=== PATIENT | male | born 2000 | race Caucasian/White ===

== ENCOUNTER → 2019-12-22 09:24 | Outpatient (BNVA) | payer OTHER, SELFPAY | PROVIDERS: Family Provider Family Medicine; PCP Nurse Practitioner Family; Visit Provider Registered Nurse | DX: I10 Essential (primary) hypertension (principal); L03.031 Cellulitis of right toe | CPT/HCPCS: 80053; 80061; 81000; 85025 ==

== ENCOUNTER 2023-08-23 12:52 | Emergency (ER) | payer SELFPAY ==
[2023-08-23 12:59] VITALS: BP 142/73; PULSE 86; RESP 18; TEMP 36.8; O2SAT 98; BMI 30.5
--- NOTE | 2023-08-23 13:02 | W.ED.PSYCHS ---
HPI - Psych General: Chief Complaint: Psychiatric Symptoms Stated Complaint: SI Time Seen by Provider: 08/23/23 12:56 PFSH ED PFSH: Medical History Aortic stenosis Essential hypertension Subungual contusion of finger Tachycardia with heart rate 100-120 beats per minute Surgical History Hx of oral surgery Hx of tonsillectomy Social History Smoking and tobacco/nicotine status: never used tobacco/nicotine Course Vital Signs: Vital signs: Vital Signs Temperature 98.3 F 08/23/23 12:59 Pulse Rate 86 08/23/23 12:59 Respiratory Rate 18 08/23/23 12:59 Blood Pressure 142/73 08/23/23 12:59 Pulse Oximetry 98 08/23/23 12:59 Oxygen Delivery Me thod Room Air 08/23/23 12:59 Discharge Plan Discharge Condition: Stable Prescriptions: No Action amoxicillin-pot clavulanate 875-125 mg tablet 1 tab PO BID 10 Days Qty: 20 0RF Referrals: Andrés Waters MD [Primary Care Provider] - Dm Galindo MD [Family Provider] - Coding Level of Care Code ED 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
--- NOTE | 2023-08-23 13:10 | W.ED.PSYCHS ---
HPI - Psych General: Chief Complaint: Psychiatric Symptoms Stated Complaint: SI Time Seen by Provider: 08/23/23 12:56 Source: patient Mode of arrival: ambulatory Limitations: no limitations History of Present Illness: 22-year-old male states that he has had history of depression he states he started taking Paxil a month ago he states over the last week he has had worsening depression with suicidal thoughts he has no specific plans. He does not see a psychiatrist he states that he gets his Paxil from his PCP states he is feeling like he needs to get help though as his thoughts have worsened he has no specific plans he voluntarily wants to get help. Associated symptoms: Reports depression Review of Systems Const: Denies: fever(s), chills, body aches or change in appetite ENMT: Denies: throat pain or dental pain Card: Denies: chest pain Resp: Denies: dyspnea GI: Denies: abdominal pain, nausea, vomiting or diarrhea Musc: Denies: neck pain or back pain Skin/Breast: Denies: rash Neuro: Denies: headache(s) Psych: Reports: depression [facility] ED PFSH: Medical History Aortic stenosis Essential hypertension Subungual contusion of finger Tachycardia with heart rate 100-120 beats per minute Surgical History Hx of oral surgery Hx of tonsillectomy Social History Smoking and tobacco/nicotine status: never used tobacco/nicotine Physical Exam Const: COMMON NORMALS: no acute distress, patient oriented x3 and healthy appearing HENMT: COMMON NORMALS: normocephalic and atraumatic HEAD & SCALP: normocephalic and atraumatic Neck/C-Spine: COMMON NORMALS: full ROM and supple Chest: COMMONS NORMALS: normal inspection of the chest Resp: COMMON NORMALS: normal respiratory effort Cardio: COMMON NORMALS: regular rate, regular rhythm and No murmurs present (Cardio) RATE: regular rate RHYTHM: regular rhythm GI: INSPECTION: Yes normal to inspection Extremity: COMMON NORMALS: normal to inspection and full ROM Neuro: COMMON NORMALS: patient oriented x3, moves all extremities and no focal motor deficits Psych: COMMON NORMALS: mental status grossly normal, Normal thought process present and cooperative MOOD & AFFECT: Yes euthymic mood THOUGHT PROCESS: Normal thought process present Skin: COMMON NORMALS: no rashes or lesions noted and no wounds GENERAL SKIN EXAM: no rashes or lesions noted Course Vital Signs: Vital signs: Vital Signs Temperature 98.3 F 08/23/23 12:59 Pulse Rate 86 08/23/23 12:59 Respiratory Rate 18 08/23/23 12:59 Blood Pressure 142/73 08/23/23 12:59 Pulse Oximetry 98 08/23/23 12:59 Oxygen Delivery Me thod Room Air 08/23/23 12:59 MDM - Psych Medical Decision Making Patient presents with depression for someone to be voluntarily admitted in the study. Like to go home I did have patient evaluated by psychiatrist here who feels he is not a threat to himself and does not need to be 96. We will switch his Paxil to Prozac he is to follow-up with the crisis center on Wednesday he is to return if worsening he understands agrees to plan. Medical Records I reviewed the patient's medical records. Lab Data I reviewed the patient's lab results. 08/23/23 13:05 08/23/23 13:05 Laboratory Results WBC 6.88 10^3/uL (3.29-11.43) 08/23/23 13:05 RBC 4.86 10^6/uL (3.85-5.65) 08/23/23 13:05 Hgb 14.40 g/dL (11.27-16.99) 08/23/23 13:05 Hct 42.0 % (37-53) 08/23/23 13:05 MCV 86.4 fl (82-101) 08/23/23 13:05 MCH 29.6 pg (27-33) 08/23/23 13:05 MCHC 34.3 g/dL (30-55) 08/23/23 13:05 RDW 13.8 % (12.1-15.1) 08/23/23 13:05 Plt Count 284 10^3/cmm (157-399) 08/23/23 13:05 MPV 9.4 fL (7.4-10.4) 08/23/23 13:05 Neut % (Auto) 56.8 % 08/23/23 13:05 Lymph % (Auto) 31.8 % 08/23/23 13:05 Mills % (Auto) 9.2 % 08/23/23 13:05 Eos % (Auto) 1.5 % 08/23/23 13:05 Baso % (Auto) 0.4 % 08/23/23 13:05 Neut # (Auto) 3.91 10^3/uL (1.8-7.7) 08/23/23 13:05 Lymph # (Auto) 2.2 10^3/uL (0.8-4.8) 08/23/23 13:05 Mills # (Auto) 0.6 10^3/uL (0.2-0.9) 08/23/23 13:05 Eos # (Auto) 0.1 10^3/uL (0.0-0.8) 08/23/23 13:05 Baso # (Auto) 0.0 10^3/uL (0.0-0.1) 08/23/23 13:05 Nucleated RBC % (auto) 0 % 08/23/23 13:05 Nucleated RBCs # 0.0 /100WBC 08/23/23 13:05 Sodium 142 mmol/L (136-145) 08/23/23 13:05 Potassium 4.0 mmol/L (3.5-5.1) 08/23/23 13:05 Chloride 104 mmol/L (98-107) 08/23/23 13:05 Carbon Dioxide 27 mmol/L (22-29) 08/23/23 13:05 Anion Gap 15.0 (5-19) 08/23/23 13:05 BUN 11 mg/dL (6-20) 08/23/23 13:05 Creatinine 0.6 mg/dL (0.7-1.2) L 08/23/23 13:05 GFR Calculation 165.5 mL/min (90-130) H 08/23/23 13:05 Glucose 104 mg/dL (65-115) 08/23/23 13:05 Calculated Osmolality 294 mOsm/kg (285-295) 08/23/23 13:05 Calcium 9.5 mg/dL (8.5-10.5) 08/23/23 13:05 Total Bilirubin 0.8 mg/dL (0.15-1.2) 08/23/23 13:05 AST 14 U/L (0-40) 08/23/23 13:05 ALT 20 U/L (0-41) 08/23/23 13:05 Alkaline Phosphatase 65 U/L (40-130) 08/23/23 13:05 Total Protein 7.5 g/dL (6.6-8.7) 08/23/23 13:05 Albumin 4.9 g/dL (3.5-5.2) 08/23/23 13:05 Globulin 2.6 g/dL (1.3-4.6) 08/23/23 13:05 Urine Color Yellow (Yellow) 08/23/23 14:30 Urine Appearance Clear (CLEAR) 08/23/23 14:30 Urine pH 5 (5-7) 08/23/23 14:30 Ur Specific [place] 1.010 (1.005-1.030) 08/23/23 14:30 Urine Protein Neg (Negative) 08/23/23 14:30 Urine Glucose (UA) Norm (Normal) 08/23/23 14:30 Urine Ketones Negative (Negative) 08/23/23 14:30 Urine Blood Neg (Negative) 08/23/23 14:30 Urine Nitrate Negative (Negative) 08/23/23 14:30 Urine Bilirubin Neg (Negative) 08/23/23 14:30 Urine Urobilinogen Norm mg/dL (Negative) 08/23/23 14:30 Ur Leukocyte Esterase Negative (Negative) 08/23/23 14:30 Salicylates < 0.3 mg/dL (3-10) L 08/23/23 13:05 Urine Opiates Screen Negative ng/mL (Negative) 08/23/23 14:30 Acetaminophen < 5.0 ug/mL (10-30) L 08/23/23 13:05 Ur Barbiturates Screen Negative ng/mL (Negative) 08/23/23 14:30 Ur Phencyclidine Scrn Negative ng/mL (Negative) 08/23/23 14:30 Ur Amphetamines Screen Negative ng/mL (Negative) 08/23/23 14:30 U Benzodiazepines Scrn Negative ng/mL (Negative) 08/23/23 14:30 Urine Cocaine Screen Negative ng/mL (Negative) 08/23/23 14:30 U Marijuana (THC) Screen Negative ng/mL (Negative) 08/23/23 14:30 Ethyl Alcohol < 10 mg/dL (0-10) 08/23/23 13:05 No radiology studies performed this visit Discharge Plan Discharge Patient Disposition: Home Clinical Impression: Depression Condition: Stable Prescriptions: New Prozac 20 mg capsule 20 mg PO DAILY Qty: 30 0RF Discontinued paroxetine HCl 10 mg Tablet 10 mg PO QPM Discharge Orders: Discharge Order (Routine); Ordered 08/23/23 Ordered By: Russel Mckeon Discharge ED (Routine); Ordered 08/23/23 Ordered By: Russel Mckeon Referrals: Andrés Waters MD [Primary Care Provider] - Dm Galindo MD [Family Provider] - Discharge Diet: Advance as tolerated Discharge Activity: Resume usual activity Patient Instructions: Depression (ED) Coding Level of Care Code ED Operating Room Orderly for Cristobal Khanna
[2023-08-23 13:11] LABS: Basophils % 0.4 %; Eosinophils # 0.1 10^3/uL (0.0-0.8); Eosinophils % 1.5 %; Lymphocytes # 2.2 10^3/uL (0.8-4.8); Lymphocytes % 31.8 %; Mean Corpuscular HGB Conc 34.3 g/dL (30-55); Mean Corpuscular Hemoglobin 29.6 pg (27-33); Mean Corpuscular Volume 86.4 fl (82-101); Mean Platelet Volume 9.4 fL (7.4-10.4); Monocytes # 0.6 10^3/uL (0.2-0.9); Monocytes % 9.2 %; Neutrophils # 3.91 10^3/uL (1.8-7.7); Neutrophils % 56.8 %; Nucleated Red Blood Cells % 0 %; Platelet Count 284 10^3/cmm (157-399); Red Blood Count 4.86 10^6/uL (3.85-5.65); Red Cell Distribution Width 13.8 % (12.1-15.1); White Blood Count 6.88 10^3/uL (3.29-11.43)
[2023-08-23 13:34] LABS: Alanine Aminotransferase 20 U/L (0-41); Albumin Level 4.9 g/dL (3.5-5.2); Alkaline Phosphatase 65 U/L (40-130); Aspartate Amino Transferase 14 U/L (0-40); Blood Urea Nitrogen 11 mg/dL (6-20); Calcium 9.5 mg/dL (8.5-10.5); Carbon Dioxide 27 mmol/L (22-29); Chloride 104 mmol/L (98-107); Globulin 2.6 g/dL (1.3-4.6); Glomerular Filtration Rate 165.5 mL/min (90-130); Glucose 104 mg/dL (65-115); Osmolality Calculated 294 mOsm/kg (285-295); Sodium 142 mmol/L (136-145); Total Bilirubin 0.8 mg/dL (0.15-1.2); Total Protein 7.5 g/dL (6.6-8.7)
[2023-08-23 13:36] LABS: Acetaminophen < 5.0 ug/mL (10-30); Alcohol Level < 10 mg/dL (0-10); Salicylate < 0.3 mg/dL (3-10)
[2023-08-23 14:56] LABS: Add Urine Microscopic? NO; Charge for UA Resulting for Rev
[2023-08-23 15:02] LABS: Bilirubin Urine Neg (Negative); Blood Urine Neg (Negative); Glucose Urine UA Norm (Normal); Ketones Urine Negative (Negative); Leukocyte Esterase Urine Negative (Negative); Nitrate Urine Negative (Negative); Protein Urine Neg (Negative); Urine Appearance Clear (CLEAR); Urine Color Yellow (Yellow); Urobilinogen Urine Norm (Negative); pH Urine 5 (5-7)
[2023-08-23 15:21] LABS: Amphetamines Screen Urine Negative (Negative); Barbiturates Screen Urine Negative (Negative); Benzodiazepines Screen Urine Negative (Negative); Cocaine Screen Urine Negative (Negative); Opiate Screen Urine Negative (Negative); PCP Screen Urine Negative (Negative); THC Screen Urine Negative (Negative)
== END 2023-08-23 15:49 | disposition home or self-care (01) ==
LOC: ER 13:02 → NP 14:33
PROVIDERS: Emergency Provider Emergency Medicine; Family Provider Family Medicine; PCP Family Medicine
DX: F32.A Depression, unspecified (principal); I10 Essential (primary) hypertension
CPT/HCPCS: 36415; 80053; 80306; 80307; 81003; 85025; 99283